=== PATIENT | male | born 1945 | race Two or more races ===

== ENCOUNTER 2018-10-15 07:43 | Emergency (ER) | payer MEDICARE ==
[~2018-10-15] VITALS: Ht 160 cm; Wt 68.0 kg
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
--- NOTE | 2018-10-15 07:45 | NUR ---
DR TODD AT BEDSIDE
[2018-10-15] MEDS ORDERED: ASPIRIN 325 MG TABLET ONE (07:56)
[2018-10-15] MEDS ORDERED: ASPIRIN 325 MG TABLET PO ONE (08:00)
[2018-10-15 08:10] LABS: BASOPHILS # (AUTO) 0.1 /CMM (0.0-0.2); BASOPHILS % (AUTO) 1.3 % (0.0-2.0); HEMATOCRIT 45 % (39-51); HEMOGLOBIN 15.2 g/dL (13.5-17.5); LYMPHOCYTES # (AUTO) 2.5 /CMM (0.8-4.8); LYMPHOCYTES % (AUTO) 40.2 % (20.0-44.0); MEAN CORPUSCULAR HGB CONC 34 g/dl (31.0-36.0); MEAN CORPUSCULAR VOLUME 89 fL (80-96); MONOCYTES # (AUTO) 0.5 /CMM (0.1-1.30); MONOCYTES % (AUTO) 8.6 % (2.0-12.0); NEUTROPHILS # (AUTO) 2.8 /CMM (1.8-8.9); NEUTROPHILS % (AUTO) 43.9 % (43.0-81.0); PLATELET COUNT (AUTO) 172 /CMM (150-450); RED BLOOD CELL COUNT(AUTO) 5.06 MIL/uL (4.5-6.0); WHITE BLOOD COUNT (AUTO) 6.3 K/uL (4.3-11.0)
--- NOTE | 2018-10-15 08:11 | NUR ---
DR AVITIA AND DR TODD AT BEDSIDE
[2018-10-15 08:17] LABS: CALCIUM, SERUM 9.5 mg/dL (8.5-10.1); CARBON DIOXIDE 24 mmol/L (21-32); CHLORIDE 103 mmol/L (98-107); GLUCOSE 180 mg/dL (74-106); POTASSIUM 3.7 mmol/L (3.5-5.1); SODIUM SERUM 138 mmol/L (136-145); UREA NITROGEN, BLOOD 13 mg/dL (7-18)
[2018-10-15 08:22] LABS: ALANINE AMINOTRANSFERASE 43 U/L (12-78); ALBUMIN 4.1 g/dL (3.4-5.0); ALKALINE PHOSPHATASE 80 U/L (46-116); ASPARTATE AMINOTRANSFERASE 23 U/L (15-37); BILIRUBIN,DIRECT 0.3 mg/dL (0.0-0.2); BILIRUBIN,TOTAL 1.4 mg/dL (0.2-1.0); TOTAL PROTEIN, SERUM 7.5 g/dL (6.4-8.2)
[2018-10-15] MEDS ORDERED: IV NS 0.9% 1,000 ML IV ONE (09:00)
[2018-10-15] MEDS ORDERED: IOHEXOL-300 100 ML VIAL IV ONE (09:10)
[2018-10-15] MEDS ORDERED: CT SWABBABLE VALVE TRANS SET 1 EA INFUS.SET MC ONE (09:10)
[2018-10-15] MEDS ORDERED: IV NS 0.9% 250 ML IV ONE (09:10)
--- NOTE | 2018-10-15 10:22 | NUR ---
OUT FOR CT SCAN
--- NOTE | 2018-10-15 11:48 | NUR ---
IV removed. Catheter intact and site benign. Pressure and 4x4 applied to site. No bleeding noted.Patient discharged to home in stable condition. Written and verbal after care instructions given. Patient verbalizes understanding of instruction.
[2018-10-15 11:50] VITALS: BP 154/84
== END 2018-10-15 11:52 | disposition home or self-care (01) ==
LOC: ER 07:43
DX: R07.89 Other chest pain (principal); R06.02 Shortness of breath; R42 Dizziness and giddiness; E03.9 Hypothyroidism, unspecified; Z98.890 Other specified postprocedural states; V49.49XA Driver injured in collision with other motor vehicles in traffic accident, initial encounter; Y93.89 Activity, other specified; Y92.411 Interstate highway as the place of occurrence of the external cause; Y99.8 Other external cause status
CPT/HCPCS: 36415; 71045; 71260; 74177; 80048; 80076; 84484; 85025; 85730; 93005; 93307; 96360; 99284; A4606; J7030; J7050; Q9967